=== PATIENT | female | born 1970 | race Two or more races ===

== ENCOUNTER 2025-03-23 21:38 | Emergency (ER) | payer MEDICAID, SELFPAY ==
[2025-03-23 22:40] VITALS: BP 159/95; PULSE 84; RESP 18; TEMP 36.7; O2SAT 95
--- NOTE | 2025-03-23 23:06 | XR_ITS ---
Examination: Wrist, right 3 views Technique: Wrist AP, oblique, lateral 3 views Date and time of exam: Patient fell the day with injured the wrist, wrist pain. FINDINGS: On the lateral view tiny chip fracture off the proximal carpal row Radius and ulna appear intact No dislocation IMPRESSION: 2 mm chip fracture dorsal wrist off the proximal carpal row, which may be off the navicular
[2025-03-24 01:21] VITALS: RESP 16
--- NOTE | 2025-03-24 04:54 | PD.EDHAND ---
Upper Extremity Injury RME/HPI General Chief Complaint: Fall Stated Complaint: FELL, RIGHT WRIST INJURY Time Seen by Provider: 03/23/25 23:05 Arrival date/time: 03/23/25 21:38 54F with history of HTN and thyroid cancer presents to ED with R wrist pain after trip and fall. Patient denies hitting head. Limitations: no limitations Related Data Home Medications ?Medication ?Instructions ?Recorded ?Confirmed levothyroxine 150 mcg tablet 175 mcg PO QAM 01/12/18 11/10/20 (Synthroid) propranolol 20 mg tablet 40 mg PO DAILY 01/12/18 11/10/20 Previous Rx's ?Medication ?Instructions ?Recorded azithromycin 250 mg tablet See Rx Instructions PO .COMPLEX #6 08/01/20 (Zithromax Z-Josue) tabs hydrocodone 5 mg-acetaminophen 325 1 tab PO Q8H PRN pain #30 tabs 08/01/20 mg tablet ([place]) azithromycin 250 mg tablet See Rx Instructions PO .COMPLEX #6 11/10/20 (Zithromax Z-Josue) tabs Allergies Allergy/AdvReac Type Severity Reaction Status Date / Time sulfamethoxazole Allergy Severe SOB, Verified 03/23/25 21:39 GINA SKIN trimethoprim Allergy Severe SOB, Verified 03/23/25 21:39 GINA SKIN Review of Systems Review of Systems Systems Reviewed: All systems reviewed, normal except as documented Constitutional Constitutional: Reports system reviewed and no additional complaints, except as documented, Denies fever(s) and Denies headache(s) ENT Ears, Nose, Mouth, and Throat: Denies disequilibrium and Denies headache(s) Cardiovascular Cardiovascular: Reports system reviewed and no additional complaints, except as documented, Denies chest pain and Denies dyspnea Respiratory Respiratory: Reports system reviewed and no additional complaints, except as documented, Denies cough and Denies dyspnea Gastrointestinal Gastrointestinal: Reports system reviewed and no additional complaints, except as documented, Denies abdominal pain, Denies nausea and Denies vomiting Musculoskeletal Musculoskeletal: Reports as per HPI and Reports arthralgias Neurologic Neurologic: Reports system reviewed and no additional complaints, except as documented, Denies confusion, Denies disequilibrium and Denies headache(s) Psychiatric Psychiatric: Denies confusion Past Medical History Past Medical History NEUROLOGIC: Negative Neurological Disorders or Seizures CARDIAC: Positive Cardiac Disorders, Edema and Hypertension; Negative Congestive Heart Failure RESPIRATORY: Negative Chronic Obstructive Pulmonary Disease (COPD), Pneumonia or Sleep Apnea GASTROINTESTINAL: Positive Gastrointestinal Disorders and Gastroesophageal Reflux Disease GENITOURINARY: Negative Genitourinary Disorders or Renal Disease REPRODUCTIVE: Positive Previous Pregnancies MUSCULOSKELETAL: Negative Musculoskeletal Disorders ENDOCRINE: Positive Endocrine Disorders, Hypothyroidism and Thyroid Cancer; Negative Diabetes Mellitus Type 1 or Diabetes Mellitus Type 2 HEMATOLOGIC: Negative Blood Disorders or Anemia OTHER HISTORY: Positive Cancer; Negative Hospitalization, Autoimmune Disease, Shingles, Falls, Blood Transfusions, Blood Transfusion Reaction, Anesthesia Reactions or Chemotherapy Family History FAMILY HISTORY: Negative Family Psychiatric Problems, Family Respiratory Disorders, Family Cardiac Disorders, Family Gastrointestinal Problems, Family Cancer, Family Surgery or Family Anesthesia Reaction Surgical History SURGICAL: Positive Endocrine Surgery, Thyroidectomy, Abdominal Surgery, Tubal Ligation and Section; Negative Cardiac Surgery or Joint Replacement Social History SMOKING STATUS: Never smoker SUBSTANCE USE: does not use ED Exam General Limitations: Present no limitations General appearance: Present alert and in no apparent distress Head Head exam: Present atraumatic Eye Eye exam: Present normal appearance, PERRL and EOMI ENT ENT exam: Present normal exam, normal oropharynx and mucous membranes moist Neck Neck exam: Present normal inspection, full ROM and trachea midline Chest Chest inspection: Present normal inspection and symmetric chest wall rise Respiratory Respiratory exam: Present normal lung sounds bilaterally Cardiovascular Cardiovascular exam: Present regular rate, normal rhythm and normal heart sounds Abdominal Exam Abdominal exam: Present soft and normal bowel sounds Expanded Upper Extremity Exam Forearm/Wrist exam: Present tenderness (R) and swelling Back Exam Back exam: Present normal inspection and full ROM Neurological Exam Neurological exam: Present alert, oriented X3 and CN II-XII intact Psychiatric Psychiatric exam: Present normal affect and normal mood Skin Skin exam: Present warm, dry, intact and normal color Course Quality Measures none Orders Category Date Time Status Splint / Immobilizer STAT Care 03/24/25 00:35 Completed XR wrist comp RT min 3V Stat Exams 03/23/25 23:06 Completed Vital Signs Vital signs: Vital Signs Temperature 98.1 F 03/23/25 22:40 Pulse Rate 84 03/23/25 22:40 Respiratory Rate 18 03/23/25 22:40 Blood Pressure 159/95 H 03/23/25 22:40 Pulse Oximetry (%) 95 03/23/25 22:40 Oxygen Delivery Method Room Air 03/23/25 22:40 O2 at 95% on RA and WNLs Extremity Injury MDM Narrative MDM Narrative:: 54F with history of HTN and thyroid cancer presents to ED with R wrist pain after trip and fall. Patient denies hitting head. Physical exam reveals R wrist tenderness and swelling. Limited ROM. Patient is afebrile, calm, and alert. XR reveals R wrist chip fx. Given splint, sling, and academic counselor. Patient data External records reviewed:: [facility] previous records Clinical information provided by:: patient Social determinants that could affect healthcare access:: none Patient has the following chronic illnesses:: HTN and thyroid cancer How is presenting disease/condition affected by chronic disease/condition?: uneffected by Evaluation data The following diagnostics were reviewed and interpreted by me:: radiology exam(s) Lab and/or radiology exams considered but not ordered:: ordered Interpretation Summary: above Medications / Prescriptions Medications or Prescriptions considered but not ordered:: not ordered Medication administrations:: n/a Consultations Consultation(s) initiated? (list below): No Diagnosis Upper Extremity Injury Differential Diagnosis: sprain and strain of wrist, fracture of wrist, finger sprain, dislocation of finger, Colles' fracture, fracture of hand and other Most likely diagnosis given after review of the tests above:: wrist fx Admission Indicated Admission indicated?: not indicated Admission Request Was there a request for admission?: No Disposition Plan Disposition Plan: Discharge Discharge Attestation Discharge Attestation: The patient and all family members were given an opportunity to ask questions and understood the discharge instructions. Discharge instructions specifically effects, indications for sooner follow up or return to the emergency department, and the expected course of current diagnosis. Patient condition: Stable Discharge Plan Plan Patient Disposition: HOME (Self Care) Discharge Disposition comment: Stable Prescriptions/Referrals Prescriptions/Med Rec: No Action azithromycin [Zithromax Z-Josue] 250 mg tablet See Rx Instructions .ROUTE .COMPLEX Qty: 6 0RF Rx Instructions: take 500 mg today (day 1), then 250 mg for 4 days (days 2-5) levothyroxine [Synthroid] 150 mcg Tablet 175 mcg PO QAM propranolol 20 mg Tablet 40 mg PO DAILY hydrocodone-acetaminophen [[place]] 5-325 mg tablet 1 tab PO Q8H MDD 6 PRN (Reason: pain) Qty: 30 0RF azithromycin [Zithromax Z-Josue] 250 mg tablet See Rx Instructions .ROUTE .COMPLEX Qty: 6 0RF Rx Instructions: take 500 mg today (day 1), then 250 mg for 4 days (days 2-5) Referrals: Epi Hernandez MD [Primary Care Provider] - In 1 week Problem List Clinical Impression: Fracture of wrist Patient/Caregiver Discharge Instructions Education Materials: ED Fracture, Wrist, General Additional Instructions: Please follow-up with PCP within 24-48 hours and return immediately if symptoms worsen. See PCP for referral to ortho. Make sure to bring disk. Print Language: Swedish Stand Alone Forms: Work/School Release, Patient Portal Info Letter PA/SOFTWARE INTEGRATION DEVELOPER Supervising Physician PA/SOFTWARE INTEGRATION DEVELOPER Supervising Physician: Dr. Johnson
== END 2025-03-24 01:22 | disposition home or self-care (01) ==
PROVIDERS: Emergency Provider Emergency Medicine; PCP Family Medicine
DX: S62.101A Fracture of unspecified carpal bone, right wrist, initial encounter for closed fracture (principal); W01.0XXA Fall on same level from slipping, tripping and stumbling without subsequent striking against object, initial encounter
CPT/HCPCS: 29125; 73110; 99283

== ENCOUNTER 2025-03-26 19:17 | Emergency (ER) | payer MEDICAID, SELFPAY ==
[2025-03-26 19:19] VITALS: BMI 47.6
--- NOTE | 2025-03-26 19:22 | PD.EDVAGBL ---
ED OB Contraction Preg RMI/HPI General Chief complaint: Vaginal Bleeding Stated complaint: vag bleeding abd pain Time Seen by Provider: 03/26/25 19:20 Arrival date/time: 03/26/25 19:17 RME / HPI RME / HPI Narrative: This section includes all my notes and documentations, including HPI, PE, and ED course. Flex Mccarthy MD HPI: 54yo female presents to the ED for a chief complaint of intermittent vaginal bleeding for the last few months that worsened today. Patient does have mild pelvic cramping. No fever, chills, nausea, vomiting or any other associated symptoms. No other complaints reported. ROS: All negative except as documented in HPI. Physical Exam: General: Alert and oriented. No acute distress when remaining still. Eyes: Conjunctivae and lids clear. ENT: No nasal congestion. Neck: Supple. Heart: RRR. Lungs: No respiratory distress. Good air movement. No rhonchi, wheezing, rales. Abdomen: Soft and nontender. Normal bowel sounds. No distension. No rebound or guarding. Back: No CVA tenderness. Skin: Warm and dry. Neuro: Alert and oriented X 3. I reviewed all diagnostic test results. My interpretation of the chest x-ray is NAD. My review of the US transvaginal report is abnormal thickened endometrial stripe. My review of the CT abdomen pelvis report is abnormal thickened endometrial stripe. Blood tests and urine tests unremarkable. At this point, diagnoses include postmenopausal bleeding with thickened endometrial stripe. Treatment here included NS, Toradol, and Zofran. She felt better. Recommend outpatient [employer] workup to rule out cancer. Based on my best medical judgment, made decision no further evaluation or treatment indicated at this time. Patient understands and agrees to the discharge instructions customized and printed, see below. Discharge Instructions from Dr. Mccarthy printed for you: 1. After extensive evaluation, exact cause of your postmenopausal bleeding was not determined. But your red blood cell count was normal, meaning transfusion or other emergent intervention to stop the bleeding was not indicated. 2. But your uterus lining is abnormally thick. So we need to rule out the worst cause, which is cancer. This does not mean you have cancer but we need to rule it out. 3. See a primary care doctor on 03/27/2025 for recheck and further care. Ask to review all test results and official radiology reports, to make sure you receive all necessary follow-ups and monitoring. Ask for a referral to see lining parts sewer to help you find the cause and treatment of your condition. Call your insurance company for help. 4. Seek immediate medical care with intolerable pain, severely heavy vaginal bleeding (soaking more than 3 pads per hour), or with any concerns. Flex Mccarthy MD Related Data Home Medications ?Medication ?Instructions ?Recorded ?Confirmed levothyroxine 150 mcg tablet 175 mcg PO QAM 01/12/18 11/10/20 (Synthroid) propranolol 20 mg tablet 40 mg PO DAILY 01/12/18 11/10/20 Previous Rx's ?Medication ?Instructions ?Recorded azithromycin 250 mg tablet See Rx Instructions PO .COMPLEX #6 08/01/20 (Zithromax Z-Josue) tabs hydrocodone 5 mg-acetaminophen 325 1 tab PO Q8H PRN pain #30 tabs 08/01/20 mg tablet ([place]) azithromycin 250 mg tablet See Rx Instructions PO .COMPLEX #6 11/10/20 (Zithromax Z-Josue) tabs Allergies Allergy/AdvReac Type Severity Reaction Status Date / Time sulfamethoxazole Allergy Severe SOB, Verified 03/23/25 21:39 [place]INA SKIN trimethoprim Allergy Severe SOB, Verified 03/23/25 21:39 [place] SK[place] Review of Systems Review of Systems Systems Reviewed: All systems reviewed, normal except as documented Past Medical History Past Medical History NEUROLOGIC: Negative Neurological Disorders or Seizures CARDIAC: Positive Cardiac Disorders, Edema and Hypertension; Negative Congestive Heart Failure RESPIRATORY: Negative Chronic Obstructive Pulmonary Disease (COPD), Pneumonia or Sleep Apnea GASTROINTESTINAL: Positive Gastrointestinal Disorders and Gastroesophageal Reflux Disease GENITOURINARY: Negative Genitourinary Disorders or Renal Disease REPRODUCTIVE: Positive Previous Pregnancies MUSCULOSKELETAL: Negative Musculoskeletal Disorders ENDOCRINE: Positive Endocrine Disorders, Hypothyroidism and Thyroid Cancer; Negative Diabetes Mellitus Type 1 or Diabetes Mellitus Type 2 HEMATOLOGIC: Negative Blood Disorders or Anemia OTHER HISTORY: Positive Cancer; Negative Hospitalization, Autoimmune Disease, Shingles, Falls, Blood Transfusions, Blood Transfusion Reaction, Anesthesia Reactions or Chemotherapy Family History FAMILY HISTORY: Negative Family Psychiatric Problems, Family Respiratory Disorders, Family Cardiac Disorders, Family Gastrointestinal Problems, Family Cancer, Family Surgery or Family Anesthesia Reaction Surgical History SURGICAL: Positive Endocrine Surgery, Thyroidectomy, Abdominal Surgery, Tubal Ligation and Section; Negative Cardiac Surgery or Joint Replacement Social History SMOKING STATUS: Never smoker SUBSTANCE USE: does not use ED Exam Narrative Physical exam: As noted in HPI. Course Quality Measures none Orders Category Date Time Status CT Screening NOW Care 03/26/25 19:31 Active Saline [Insert IV] NOW Care 03/26/25 19:[address] abdomen pelvis w con Stat Exams 03/26/25 19:31 Completed US transvaginal Stat Exams 03/26/25 19:32 Completed XR chest 1V portable Stat Exams 03/26/25 19:32 Completed Bilirubin,Direct Stat Lab 03/26/25 20:55 Completed CBC Stat Lab 03/26/25 20:55 Completed CMP [Comprehensive Metabolic Panel] Stat Lab 03/26/25 20:55 Completed CRP [C-Reactive Protein] Stat Lab 03/26/25 20:55 Completed ESR [Sed Rate (ESR)] Stat Lab 03/26/25 20:55 Completed Free T4 (Free Thyroxine) Stat Lab 03/26/25 20:55 Completed HCG Qualitative,Urine Stat Lab 03/26/25 21:37 Completed Magnesium Stat Lab 03/26/25 20:55 Completed PT [Prothrombin Time with INR] Stat Lab 03/26/25 20:55 Completed PTT [Partial Thromboplastin Time] Stat Lab 03/26/25 20:55 Completed Procalcitonin Stat Lab 03/26/25 20:55 Completed TSH [Thyroid Stimulating Hormone] Stat Lab 03/26/25 20:55 Completed UA, C/S IF [Urinalysis, C/S if Indicated] Stat Lab 03/26/25 21:35 Completed Ketorolac Inj [Toradol Inj] Med 03/26/25 19:30 Discontinued 30 mg IVP X1 ONE Ondansetron Inj [Zofran Inj] Med 03/26/25 19:30 Discontinued 4 mg IVP X1 ONE Sodium Chloride 0.9% 1000 ml [Ns] 1,000 ml Med 03/26/25 19:30 Discontinued IV 999 mls/hr Vital Signs Vital signs: Vital Signs Temperature 99.6 F 03/26/25 19:40 Pulse Rate 78 03/26/25 19:40 Respiratory Rate 19 03/26/25 19:40 Blood Pressure 160/89 H 03/26/25 19:40 Pulse Oximetry (%) 96 03/26/25 19:40 Oxygen Delivery Method Room Air 03/26/25 19:40 Vaginal Bleeding MDM Narrative MDM Narrative: 54yo female presents to the ED for a chief complaint of intermittent vaginal bleeding for the last few months that worsened today. Patient does have mild pelvic cramping. No fever, chills, nausea, vomiting or any other associated symptoms. Patient had a procedure done a few years ago due to having similar symptoms, but does not remember what was done. No other complaints reported. Patient data External records reviewed:: [facility] previous records (Per chart review, patient has no relevant previous ED visits. Patient had a hysteroscopy D&C done on 08/01/20 due to having an endometrial polyp.) Clinical information provided by:: patient Social determinants that could affect healthcare access:: none Patient has the following chronic illnesses:: HTN How is presenting disease/condition affected by chronic disease/condition?: uneffected by Evaluation data The following diagnostics were reviewed and interpreted by me:: lab results and radiology exam(s) Lab and/or radiology exams considered but not ordered:: none Interpretation Summary: I reviewed all diagnostic test results. My interpretation of the chest x-ray is NAD. My review of the US transvaginal report is abnormal thickened endometrial stripe. My review of the CT abdomen pelvis report is abnormal thickened endometrial stripe. Blood tests and urine tests unremarkable. Medications / Prescriptions Medications or Prescriptions considered but not ordered:: none Medication administrations:: Medication Administration History Discontinued Medications Sodium Chloride (Ns) 1,000 mls @ 999 mls/hr IV .Q1H1M ONE Stop: 03/26/25 20:30 Last Infusion: 03/26/25 22:16 Dose: Infused Documented By: Admin: 03/26/25 20:59 Dose: 999 mls/hr Documented By: BD Ketorolac Tromethamine (Ketorolac Inj 30 Mg/Ml Vial) 30 mg IVP X1 ONE Stop: 03/26/25 19:31 Last Admin: 03/26/25 20:58 Dose: Not Given Documented By: BD Non-Admin Reason: Patient Refused Ondansetron HCl (Ondansetron Inj 2 Mg/Ml Inj 2 Ml) 4 mg IVP X1 ONE; Protocol Stop: 03/26/25 19:31 Last Admin: 03/26/25 20:58 Dose: Not Given Documented By: BD Non-Admin Reason: Patient Refused NS, Toradol, Zofran Consultations Consultation(s) initiated? (list below): No Diagnosis Vaginal Bleeding Differential Diagnosis: other (Cancer, fibroids, fibrodysplasia, dysfunctional uterine bleeding) Most likely diagnosis given after review of the tests above:: Postmenopausal bleeding with thickened endometrial stripe. Admission Indicated Admission indicated?: not indicated Explain why admission is indicated or not indicated:: With no condition needing emergent intervention, there was no indication for admission. Admission Request Was there a request for admission?: No Disposition Plan Disposition Plan: Discharge Discharge Attestation Discharge Attestation: The patient and all family members were given an opportunity to ask questions and understood the discharge instructions. Discharge instructions specifically effects, indications for sooner follow up or return to the emergency department, and the expected course of current diagnosis. Patient condition: Stable Discharge Plan Plan Patient Disposition: HOME (Self Care) Prescriptions/Referrals Prescriptions/Med Rec: No Action azithromycin [Zithromax Z-Josue] 250 mg tablet See Rx Instructions .ROUTE .COMPLEX Qty: 6 0RF Rx Instructions: take 500 mg today (day 1), then 250 mg for 4 days (days 2-5) levothyroxine [Synthroid] 150 mcg Tablet 175 mcg PO QAM propranolol 20 mg Tablet 40 mg PO DAILY hydrocodone-acetaminophen [[place]] 5-325 mg tablet 1 tab PO Q8H MDD 6 PRN (Reason: pain) Qty: 30 0RF azithromycin [Zithromax Z-Josue] 250 mg tablet See Rx Instructions .ROUTE .COMPLEX Qty: 6 0RF Rx Instructions: take 500 mg today (day 1), then 250 mg for 4 days (days 2-5) Referrals: No Primary/Family,Physician [Primary Care Provider] - In 1 week Problem List Clinical Impression: Postmenopausal bleeding Patient/Caregiver Discharge Instructions Discharge Activity: activity as tolerated Education Materials: Endometrial Biopsy, ED Heavy Menstrual Bleeding Additional Instructions: Discharge Instructions from Dr. Mccarthy printed for you: 1. After extensive evaluation, exact cause of your postmenopausal bleeding was not determined. But your red blood cell count was normal, meaning transfusion or other emergent intervention to stop the bleeding was not indicated. 2. But your uterus lining is abnormally thick. So we need to rule out the worst cause, which is cancer. This does not mean you have cancer but we need to rule it out. 3. See a primary care doctor on 03/27/2025 for recheck and further care. Ask to review all test results and official radiology reports, to make sure you receive all necessary follow-ups and monitoring. Ask for a referral to see lining parts sewer to help you find the cause and treatment of your condition. Call your insurance company for help. 4. Seek immediate medical care with intolerable pain, severely heavy vaginal bleeding (soaking more than 3 pads per hour), or with any concerns. Print Language: Mohawk Stand Alone Forms: Carmen Award Info., Patient Portal Info Letter
--- NOTE | 2025-03-26 19:31 | XR_ITS ---
Examination: CT abdomen with intravenous contrast CT pelvis with intravenous contrast 2-D coronal reconstructions 2-D sagittal reconstructions Date and time of exam:March 26, 2000 2510 0 4:00 PM INDICATIONS: Lower abdominal pain and vaginal bleeding one month. CTDI: vol (mGy) 16.7 DLP: (mGycm) 878 Technique: Multiple axial sections of the abdomen and pelvis have been obtained. 64 slice high-resolution scanner used. 3 mm axial sections have been obtained, post intravenous injection of 60 cc [id number] 2-D sagittal, coronal reconstructions obtained. Low dose protocols were performed. One or more of the following dose reduction techniques were used; automated exposure control, adjustment of the mA and/or KV according to patient size, use of iterative reconstruction technique. Findings: No gallstones No pancreatic or adrenal mass 2 mm nonobstructing left renal calculus Aorta normal size No bowel obstruction Tiny fat-containing umbilical hernia Anteverted uterus with thickened endometrial stripe No pelvic lymphadenopathy Urinary bladder intact IMPRESSION: 2 mm nonobstructing left renal calculus Abnormal thickened endometrial stripe Recommend MRI pelvis follow-up pre and postcontrast to assess for malignant neoplasm of the endometrium
--- NOTE | 2025-03-26 19:32 | XR_ITS ---
Examination: AP chest single TECHNIQUE: AP portable semiupright chest single view Date and time: 2024, 1946 hours Comparison November 20, 2020 INDICATIONS: Shortness of breath today. FINDINGS: Suspicious for early right base pneumonia Mild vascular congestion Prominent osteopenia IMPRESSION: Suspicious for early right base pneumonia
--- NOTE | 2025-03-26 19:32 | XR_ITS ---
Examination: Transvaginal ultrasound of the pelvis, complete Technique: Transvaginal sonographic images pelvis performed using costello scale imaging Exam date and time: March 26, 2025 1937 hours INDICATIONS: Heavy vaginal bleeding beginning 3 months ago FINDINGS: Uterus 11.7 cm with blood in the cervix 3.6 x 1.2 x 3.4 cm Endometrial stripe 3.4 cm thickened Right ovary 2.2 cm arterial flow Doppler view obscured by bowel gas IMPRESSION: Blood in the cervix, abnormal thickened endometrial stripe, differential would include malignant neoplasm of the endometrium Recommend elective MRI pelvis follow-up pre and postcontrast.
[2025-03-26 19:40] VITALS: BP 160/89; PULSE 78; RESP 19; TEMP 37.6; O2SAT 96
[2025-03-26] MEDS: SODIUM CHLORIDE 0.9% 1000 ML 1,000 ML 999 ML IV (20:59)
[2025-03-26 21:19] LABS: Basophils # (Auto) 0.1 Thou/mm3 (0.0-0.2); Basophils % (Auto) 1 % (0-2.5); Eosinophils # (Auto) 0.8 Thou/mm3 (0.0-0.5); Eosinophils % (Auto) 10 % (0-10); Immature Granulocytes % (Auto) 1 % (0-0); Immature Granulocytes Auto 0.04 Thou/mm3 (0.00-0.00); Lymphocytes % (Auto) 26 % (10-50); Mean Corpuscular HGB Conc 35.9 g/dl (31.0-37.0); Mean Corpuscular Hemoglobin 32.5 pg (25.0-35.0); Mean Corpuscular Volume 91 fL (80-100); Monocytes # (Auto) 0.5 Thou/mm3 (0.0-0.8); Monocytes % (Auto) 6 % (0-12); Neutrophils # (Auto) 4.3 Thou/mm3 (1.8-7.7); Neutrophils % (Auto) 56 % (37-80); Nucleated Red Blood Cell % 0 /100 WBC (0); Platelet Count 252 Thou/mm3 (140-440); RDW Standard Deviation 40.5 fL (36.4-46.3); Red Blood Count 4.31 Miln/mm3 (4.00-5.20); White Blood Count 7.6 Thou/mm3 (3.6-11.0)
[2025-03-26 21:25] LABS: Sed Rate (ESR) 27 mm/hr (0-30)
[2025-03-26 21:32] LABS: Partial Thromboplastin Time 26.3 Seconds (22.0-36.0); Prothrombin Time 10.7 Seconds (9.0-12.2)
--- NOTE | 2025-03-26 21:39 | PC.NURSE ---
in and out not done pt was able to urinate on own
[2025-03-26 21:40] LABS: Alanine Aminotransferase 48 U/L (10-49); Albumin, Serum 4.4 gm/dL (3.5-5.0); Albumin/Globulin Ratio 1.6 (1.2-2.2); Alkaline Phosphatase 85 U/L (46-116); Anion Gap 9 (7-16); Aspartate Amino Transferase 32 U/L (0-34); BUN/Creatinine Ratio 13 Ratio (12-20); Bilirubin,Direct 0.1 mg/dL (0.0-0.3); Bilirubin,Total 0.5 mg/dL (0.3-1.2); Blood Urea Nitrogen 10 mg/dL (9-23); C-Reactive Protein < 0.5 mg/dL (0.0-0.9); Calcium 9.2 mg/dL (8.3-10.6); Calcium (Corrected) 9.2 mg/dL (8.5-10.1); Carbon Dioxide 25.6 mMol/L (20.0-31.0); Chloride 106 mMol/L (98-107); Creatinine (Component) 0.8 mg/dL (0.6-1.3); Estimated Creatinine Clearance 86.2 mL/min (>60); Free T4 (Free Thyroxine) 1.21 ng/dL (0.89-1.76); Globulin 2.8 gm/dL (2.3-3.5); Glucose 104 mg/dL (74-106); Osmolality,Calculated 280 (275-295); Potassium 3.8 mMol/L (3.4-5.1); Procalcitonin < 0.04 ng/ml (0.0-0.49); Sodium 141 mMol/L (136-145); Thyroid Stimulating Hormone 9.21 uIU/mL (0.55-4.78); Total Protein 7.2 gm/dL (5.7-8.2); eGFR > 60 See Note
[2025-03-26 21:43] LABS: Collection Type, Urine Clean Catch
[2025-03-26 21:52] LABS: HCG Qualitative,Urine Negative
[2025-03-26 21:52] LABS: Bilirubin,Urine Negative (Negative); Blood,Urine 3+ (Negative); Clarity,Urine Clear (Clear/Hazy); Color,Urine Colorless (Lt Yel-Yel); Culture Indicated,Urine Not Indicated; Glucose, Urine Negative (Negative); Ketones,Urine Negative (Negative); Leukocyte Esterase,Urine Negative (Negative); Nitrite,Urine Negative (Negative); PH,Urine 6.5 (5.0-7.0); Protein,Urine Negative (Neg - Trace); RBC,Urine 133 /hpf (0-3); Specific Gravity,Urine 1.009 (1.001-1.035); Squamous Epithelial Cell,Urine 2 /hpf (0-5); Urobilinogen,Urine Negative mg/dL (0.0-1.0); WBC,Urine 7 /hpf (0-5)
[2025-03-26 22:41] VITALS: BP 155/90; PULSE 77; RESP 16; TEMP 36.6; O2SAT 97
[2025-03-26 23:43] VITALS: PULSE 85; RESP 12; TEMP 37.3; O2SAT 99
== END 2025-03-26 23:44 | disposition home or self-care (01) ==
PROVIDERS: Emergency Provider Emergency Medicine
DX: N95.0 Postmenopausal bleeding (principal); R93.89 Abnormal findings on diagnostic imaging of other specified body structures; R06.02 Shortness of breath; N20.0 Calculus of kidney
CPT/HCPCS: 36415; 71045; 74177; 76830; 80053; 81001; 81025; 82248; 83735; 84145; 84439; 84443; 85025; 85610; 85652; 85730; 86140; 96360; 99285; A4649; J7030; Q9967

== ENCOUNTER 2025-04-13 11:39 | Emergency (ER) | payer MEDICAID, SELFPAY ==
[2025-04-13 12:05] VITALS: BP 160/82; PULSE 80; RESP 18; TEMP 36.9; O2SAT 98; BMI 47.8
[2025-04-13 12:16] LABS: Collection Type, Urine Clean Catch
[2025-04-13 12:21] LABS: Bilirubin,Urine Negative (Negative); Blood,Urine Negative (Negative); Clarity,Urine Clear (Clear/Hazy); Color,Urine Lt-Yellow (Lt Yel-Yel); Culture Indicated,Urine Not Indicated; Glucose, Urine Negative (Negative); Ketones,Urine Negative (Negative); Leukocyte Esterase,Urine Positive (Negative); Nitrite,Urine Negative (Negative); PH,Urine 6.0 (5.0-7.0); Protein,Urine Negative (Neg - Trace); RBC,Urine 5 /hpf (0-3); Specific Gravity,Urine 1.011 (1.001-1.035); Squamous Epithelial Cell,Urine 2 /hpf (0-5); Urobilinogen,Urine Negative mg/dL (0.0-1.0); WBC,Urine 6 /hpf (0-5)
--- NOTE | 2025-04-13 12:49 | EDNOTE_ITS ---
ED Female Urogenital RME/HPI General Chief complaint: Urogenital-Female Stated complaint: Parasites in her urine, UTI Time Seen by Provider: 04/13/25 12:02 Arrival date/time: 04/13/25 11:39 54-year-old female presents to the emergency department today for complaints of dysuria patient reports that a UTI last month reports similar symptoms at this time patient also reports vaginal itching. Patient denies any discharge Limitations: no limitations Related Data Home Medications ?Medication ?Instructions ?Recorded ?Confirmed levothyroxine 150 mcg tablet 175 mcg PO QAM 01/12/18 0 11/10/20 (Synthroid) propranolol 20 mg tablet 40 mg PO DAILY 01/12/1803/25 Previous Rx's ?Medication ?Instructions ?Recorded azithromycin 250 mg tablet See Rx Instructions PO .COM PLEX #6 08/01/20 (Zithromax Z-Josue) tabs hydrocodone 5 mg-acetaminophen 325 1 tab PO Q8H PRN pa in #30 tabs 08/01/20 mg tablet ([place]) azithromycin 250 mg tablet See Rx Instructions PO .COM PLEX #6 11/10/20 (Zithromax Z-Josue) tabs ciprofloxacin HCl 500 mg tablet 500 mg PO BID 7 days # 14 tabs 04/13/25 fluconazole 150 mg tablet 150 mg PO Q3D 2 doses #2 tab s 04/13/25 Allergies Allergy/AdvReac Type Severity Reaction Status Date / Time sulfamethoxazole Allergy Severe SOB, Verified 04/13/25 11:44 GINA SKIN trimethoprim Allergy Severe SOB, Verified 04/13/25 11:44 GINA SKIN Review of Systems Review of Systems Systems Reviewed: All systems reviewed, normal except as documented Constitutional Constitutional: Reports system reviewed and no additional complaints, except as documented, Denies fever(s) and Denies headache(s) Eyes Eyes: Reports system reviewed and no additional complaints, except as documented and Denies blurry vision ENT Ears, Nose, Mouth, and Throat: Reports system reviewed and no additional complaints, except as documented, Denies headache(s), Denies nasal congestion and Denies nasal discharge Cardiovascular Cardiovascular: Reports system reviewed and no additional complaints, except as documented, Denies chest pain and Denies dyspnea Respiratory Respiratory: Reports system reviewed and no additional complaints, except as documented, Denies chest congestion, Denies cough and Denies dyspnea Gastrointestinal Gastrointestinal: Reports system reviewed and no additional complaints, except as documented and Denies abdominal pain Genitourinary Genitourinary: Reports system reviewed and no additional complaints, except as documented, Denies abnormal vaginal bleeding, Reports dysuria, Denies pelvic pain and Reports vaginal pruritus Integumentary/Breasts Skin/Breast: Reports system reviewed and no additional complaints, except as documented and Denies rash Neurologic Neurologic: Reports system reviewed and no additional complaints, except as documented, Reports as per HPI and Denies headache(s) Past Medical History Past Medical History NEUROLOGIC: Negative Neurological Disorders or Seizures CARDIAC: Positive Edema and Hypertension; Negative Cardiac Disorders or Congestive Heart Failure RESPIRATORY: Negative Chronic Obstructive Pulmonary Disease (COPD), Asthma, Pneumonia or Sleep Apnea GASTROINTESTINAL: Positive Gastrointestinal Disorders and Gastroesophageal Reflux Disease GENITOURINARY: Negative Genitourinary Disorders or Renal Disease (see labs) REPRODUCTIVE: Positive Previous Pregnancies MUSCULOSKELETAL: Negative Musculoskeletal Disorders ENDOCRINE: Positive Endocrine Disorders, Hypothyroidism and Thyroid Cancer; Negative Diabetes Mellitus Type 1 or Diabetes Mellitus Type 2 HEMATOLOGIC: Negative Blood Disorders, Anemia or Sickle Cell Disease OTHER HISTORY: Positive Cancer (thyroid); Negative Hospitalization, Autoimmune Disease, Shingles, Falls, Blood Transfusions, Blood Transfusion Reaction, Anesthesia Reactions or Chemotherapy Family History FAMILY HISTORY: Negative Family Psychiatric Problems, Family Respiratory Disorders, Family Cardiac Disorders, Family Gastrointestinal Problems, Family Cancer, Family Surgery or Family Anesthesia Reaction Surgical History SURGICAL: Positive Endocrine Surgery, Thyroidectomy, Abdominal Surgery, Tubal Ligation and Section; Negative Cardiac Surgery or Joint Replacement Social History SMOKING STATUS: Never smoker SUBSTANCE USE: does not use ED Exam General Limitations: Present no limitations General appearance: Present alert and in no apparent distress Head Head exam: Present atraumatic Eye Eye exam: Present normal appearance, PERRL and EOMI ENT ENT exam: Present normal exam, normal oropharynx and mucous membranes moist Neck Neck exam: Present normal inspection, full ROM and trachea midline Chest Chest inspection: Present normal inspection and symmetric chest wall rise Respiratory Respiratory exam: Present normal lung sounds bilaterally Cardiovascular Cardiovascular exam: Present regular rate, normal rhythm and normal heart sounds Abdominal Exam Abdominal exam: Present soft and normal bowel sounds; Absent distention or tenderness External exam: Absent erythema, tenderness, swelling, lesions, lacerations or ecchymosis Extremities Exam Extremities exam: Present normal inspection and full ROM Back Exam Back exam: Present normal inspection and full ROM Neurological Exam Neurological exam: Present alert, oriented X3 and CN II-XII intact Psychiatric Psychiatric exam: Present normal affect and normal mood Skin Skin exam: Present warm, dry, intact and normal color Course Quality Measures none Orders Category Date Time Status UA, C/S IF [Urinalysis, C/S if Indicated] Stat Lab 04/13/25 12:12 Completed Vital Signs Vital signs: Vital Signs Temperature 98.5 F 04/13/25 12:05 Pulse Rate 80 04/13/25 12:05 Respiratory Rate 18 04/13/25 12:05 Blood Pressure 160/82 H 04/13/25 12:05 Pulse Oximetry (%) 98 04/13/25 12:05 Oxygen Delivery Method Room Air 04/13/25 12:05 O2 saturation 98% on room air within normal limits Urogenital - Female MDM Narrative MDM Narrative:: 54-year-old female presents to the emergency department today for complaints of dysuria patient reports that a UTI last month reports similar symptoms at this time patient also reports vaginal itching. Patient denies any discharge On exam patient well-appearing patient does not appear ill or toxic no acute distress Urinalysis obtained consistent with UTI With a female transformation lead I examined the patient patient has no lesions or sores noted Patient be treated with a course of antibiotics and Diflucan Patient discharged home in no distress to follow-up with primary care doctor in the next 24 to 48 hours and for any worsening symptoms to return to the ER immediately Patient data External records reviewed:: [facility] previous records Clinical information provided by:: patient Social determinants that could affect healthcare access:: none Patient has the following chronic illnesses:: See history How is presenting disease/condition affected by chronic disease/condition?: uneffected by Evaluation data The following diagnostics were reviewed and interpreted by me:: lab results Lab and/or radiology exams considered but not ordered:: Lab obtained Interpretation Summary: Reviewed by me Medications / Prescriptions Medications or Prescriptions considered but not ordered:: Given Medication administrations:: Given Consultations Consultation(s) initiated? (list below): No Diagnosis Urogenital Female Differential Diagnosis: urinary tract infection, bacterial vaginosis and cystitis Most likely diagnosis given after review of the tests above:: UTI Admission Indicated Admission indicated?: not indicated Admission Request Was there a request for admission?: No Disposition Plan Disposition Plan: Discharge Discharge Attestation Discharge Attestation: The patient and all family members were given an opportunity to ask questions and understood the discharge instructions. Discharge instructions specifically effects, indications for sooner follow up or return to the emergency department, and the expected course of current diagnosis. Patient condition: Stable Discharge Plan Plan Patient Disposition: HOME (Self Care) Discharge Disposition comment: Stable Prescriptions/Referrals Prescriptions/Med Rec: New ciprofloxacin HCl 500 mg tablet 500 mg PO BID 7 Days Qty: 14 0RF fluconazole 150 mg tablet 150 mg PO Q3D Qty: 2 0RF Rx Instructions: may repeat second dose 72 hrs after first dose if symptoms persist No Action azithromycin [Zithromax Z-Josue] 250 mg tablet See Rx Instructions .ROUTE .COMPLEX Qty: 6 0RF Rx Instructions: take 500 mg today (day 1), then 250 mg for 4 days (days 2-5) levothyroxine [Synthroid] 150 mcg Tablet 175 mcg PO QAM propranolol 20 mg Tablet 40 mg PO DAILY hydrocodone-acetaminophen [[place]] 5-325 mg tablet 1 tab PO Q8H MDD 6 PRN (Reason: pain) Qty: 30 0RF azithromycin [Zithromax Z-Josue] 250 mg tablet See Rx Instructions .ROUTE .COMPLEX Qty: 6 0RF Rx Instructions: take 500 mg today (day 1), then 250 mg for 4 days (days 2-5) Referrals: Og Garcias MD [Primary Care Provider] - In 1 week Problem List Clinical Impression: UTI (urinary tract infection) Patient/Caregiver Discharge Instructions Education Materials: Understanding Urinary Tract ... Additional Instructions: Please follow up with your primary care doctor in the next 24-48hrs for any worsening symptoms return here immediately Print Language: Citizen Of [place] Stand Alone Forms: Carmen Award Info., Patient Portal Info Letter PA/DEE Supervising Physician GENE/DEE Supervising Physician: Dr mirza
== END 2025-04-13 12:57 | disposition home or self-care (01) ==
PROVIDERS: Nurse Practitioner Primary Care; Emergency Provider Emergency Medicine; PCP Family Medicine
DX: N39.0 Urinary tract infection, site not specified (principal)
CPT/HCPCS: 81001; 99283

== ENCOUNTER 2025-05-09 07:40 | Emergency (ER) | payer MEDICAID, SELFPAY ==
[2025-05-09 07:41] VITALS: BMI 47.5
[2025-05-09 07:57] VITALS: BP 188/97; PULSE 69; RESP 18; TEMP 36.6; O2SAT 98
--- NOTE | 2025-05-09 08:12 | EDNOTE_ITS ---
<Statement entered by Rosita Cochran MD - 05/09/25 12:11> As co-signing physician, I was present and available for consult prn. I concur with the plan and care as documented by the midlevel provider. Upper Extremity Injury RME/HPI General Chief Complaint: Hand/Wrist Problems Stated Complaint: L) 4TH FINGER BEND BACK Time Seen by Provider: 05/09/25 08:11 Source: patient Arrival date/time: 05/09/25 07:40 Mode of arrival: ambulatory Limitations: no limitations RME / HPI RME / HPI narrative: Left hand pain after catching her left hand specifically the left ring finger in a door that she open and bounced back hitting the left hand between the door and the door frame. Date of injury was yesterday complaint: injury to: left, hand and finger (Ring finger) Onset (ago): day(s) (2 days) Other Extremity Injury: Left: fingers (Ring finger) Other injuries: none Place: outdoors Severity: moderate Severity scale (1-10): 5 Relieving factors: medication (Ibuprofen 200 mg) Exacerbating factors: none Context: direct blow Related Data Home Medications ?Medication ?Instructions ?Recorded ?Confirmed levothyroxine 150 mcg tablet 175 mcg PO QAM 01/12/18 0 11/10/20 (Synthroid) propranolol 20 mg tablet 40 mg PO DAILY 01/12/1803/25 Previous Rx's ?Medication ?Instructions ?Recorded azithromycin 250 mg tablet See Rx Instructions PO .COM PLEX #6 08/01/20 (Zithromax Z-Josue) tabs hydrocodone 5 mg-acetaminophen 325 1 tab PO Q8H PRN pa in #30 tabs 08/01/20 mg tablet ([place]) azithromycin 250 mg tablet See Rx Instructions PO .COM PLEX #6 11/10/20 (Zithromax Z-Josue) tabs fluconazole 150 mg tablet 150 mg PO Q3D 2 doses #2 tab s 04/13/25 Allergies Allergy/AdvReac Type Severity Reaction Status Date / Time sulfamethoxazole Allergy Severe SOB, Verified 05/09/25 07:45 GINA SKIN trimethoprim Allergy Severe SOB, Verified 05/09/25 07:45 GINA SKIN Review of Systems Constitutional Constitutional: Reports system reviewed and no additional complaints, except as documented Eyes Eyes: Reports system reviewed and no additional complaints, except as documented, Denies dry eyes, Denies exophthalmos and Reports floaters Cardiovascular Cardiovascular: Denies chest pain with activity and Denies claudication ED Exam Narrative Physical exam: The left hand is tender to palpation at the area of MCP numbers 3 and 4. There is edema present. Patient is barely able to make a fist. There is no apparent bony deformity. No ecchymoses and neurovascular is intact. General Limitations: Present no limitations General appearance: Present alert and in no apparent distress Head Head exam: Present atraumatic Eye Eye exam: Present normal appearance and EOMI ENT ENT exam: Present normal exam, normal oropharynx and mucous membranes moist Neck Neck exam: Present normal inspection, full ROM and trachea midline Extremities Exam Extremities exam: Present tenderness (There is tenderness to palpation of the left hand at the areas of MCP #3 and 4. Neurovascular is intact. No apparent bony deformity) Back Exam Back exam: Present normal inspection and full ROM Neurological Exam Neurological exam: Present alert and oriented X3 Psychiatric Psychiatric exam: Present normal affect and normal mood Skin Skin exam: Present warm, dry, intact and normal color Course Course Course Narrative: Patient will have an x-ray of her left hand. Patient had already consumed 200 mg of ibuprofen which she says helped relieve the pain. Quality Measures none Orders Category Date Time Status XR hand LT 2V Stat Exams 05/09/25 08:16 Completed XR wrist RT 2V Stat Exams 05/09/25 10:13 Completed Left hand x-ray Vital Signs Vital signs: Vital Signs Temperature 97.8 F 05/09/25 07:57 Pulse Rate 69 05/09/25 07:57 Respiratory Rate 18 05/09/25 07:57 Blood Pressure 188/97 H 05/09/25 07:57 Pulse Oximetry (%) 98 05/09/25 07:57 Oxygen Delivery Method Room Air 05/09/25 07:57 98% Extremity Injury MDM Narrative MDM Narrative:: Patient had a fracture to the distal right wrist described as a 2 mm splinter fracture possibly off the navicular and this occurred in early March. Since that she has had a splint in place awaiting an orthopedic consult in June. Patient tells me she has been able to move her right upper extremity within the confines of her splint as normal. I took an x-ray of the right wrist and back reads it as negative for any acute processes that is no fracture. So she will go home without a splint to the right upper extremity and a splint in the form of a boxer's fracture will be applied to the left upper extremity at the hand. She is then to create a new appointment for follow-up to today's Patient data External records reviewed:: Other (specify) (NA) Clinical information provided by:: none (NA) Social determinants that could affect healthcare access:: none Patient has the following chronic illnesses:: NA How is presenting disease/condition affected by chronic disease/condition?: no chronic disease Evaluation data The following diagnostics were reviewed and interpreted by me:: radiology exam(s) (There is no apparent fracture of the right wrist and there is a fracture of the distal left fourth metacarpal.) Lab and/or radiology exams considered but not ordered:: NA Interpretation Summary: NA Medications / Prescriptions Medications or Prescriptions considered but not ordered:: NA Medication administrations:: NA Consultations Consultation(s) initiated? (list below): No Consultation #1 (Physician, Specialty, Details): NA Diagnosis Upper Extremity Injury Differential Diagnosis: sprain and strain of wrist, fracture of wrist, finger sprain, dislocation of finger and fracture of hand Most likely diagnosis given after review of the tests above:: NA Admission Indicated Admission indicated?: not indicated Admission Request Was there a request for admission?: No Admission Attestation Admission request attestation: NA Disposition Plan Disposition Plan: Discharge Discharge Attestation Discharge Attestation: The patient and all family members were given an opportunity to ask questions and understood the discharge instructions. Discharge instructions specifically effects, indications for sooner follow up or return to the emergency department, and the expected course of current diagnosis. Patient condition: Stable Discharge Plan Plan Patient Disposition: HOME (Self Care) Discharge Disposition comment: Discharge in no apparent distress Patient condition on transfer: Stable Prescriptions/Referrals Prescriptions/Med Rec: No Action azithromycin [Zithromax Z-Josue] 250 mg tablet See Rx Instructions .ROUTE .COMPLEX Qty: 6 0RF Rx Instructions: take 500 mg today (day 1), then 250 mg for 4 days (days 2-5) levothyroxine [Synthroid] 150 mcg Tablet 175 mcg PO QAM propranolol 20 mg Tablet 40 mg PO DAILY hydrocodone-acetaminophen [[place]] 5-325 mg tablet 1 tab PO Q8H MDD 6 PRN (Reason: pain) Qty: 30 0RF azithromycin [Zithromax Z-Josue] 250 mg tablet See Rx Instructions .ROUTE .COMPLEX Qty: 6 0RF Rx Instructions: take 500 mg today (day 1), then 250 mg for 4 days (days 2-5) fluconazole 150 mg tablet 150 mg PO Q3D Qty: 2 0RF Rx Instructions: may repeat second dose 72 hrs after first dose if symptoms persist Referrals: Og Garcias MD [Primary Care Provider] - In 1 week Problem List Clinical Impression: Fracture of hand Impression comment: Discharge no apparent distress Patient/Caregiver Discharge Instructions Discharge Activity: activity as tolerated Education Materials: ED Fracture, Upper Extremity Print Language: [place] Stand Alone Forms: Carmen Award Info., Patient Portal Info Letter PA/PEDIATRIC RADIOLOGIST Supervising Physician PA/PEDIATRIC RADIOLOGIST Supervising Physician: SANDRA
--- NOTE | 2025-05-09 08:16 | XR_ITS ---
Examination:: Left hand 2 views Technique one AP lateral left hand 2 views Date and time: May 09, 2025 0838 hours INDICATIONS: Injured the hand 2 days ago, hand pain FINDINGS: Acute fractures distal fourth metacarpal, minimal offset No foreign body No dislocation IMPRESSION: Acute fractures distal fourth metacarpal
--- NOTE | 2025-05-09 10:13 | XR_ITS ---
Examination: Right wrist 2 views Technique one AP lateral right wrist 2 views Date and time: May 09, 2025 1018 hours INDICATIONS: Right wrist pain today FINDINGS: Severe osteopenia Mild narrowing radiocarpal intercarpal and carpometacarpal joints No erosive arthritis IMPRESSION: Mild narrowing radiocarpal intercarpal and carpometacarpal joints No erosive arthritis No fractures
== END 2025-05-09 11:28 | disposition home or self-care (01) ==
PROVIDERS: Emergency Provider Physician Assistant; PCP Family Medicine
DX: S62.305A Unspecified fracture of fourth metacarpal bone, left hand, initial encounter for closed fracture (principal); M25.531 Pain in right wrist; W22.09XA Striking against other stationary object, initial encounter
CPT/HCPCS: 73100; 73120; 99283

== ENCOUNTER → 2025-06-08 | Outpatient (CLI) | payer MEDICAID, SELFPAY ==
--- NOTE | 2025-06-08 | XR_ITS ---
Examination: Fingers, left hand fourth digit 3 views Technique: AP, oblique, lateral views left hand fourth digit 3 views. Exam date and time: June 08, 2025 0748 hours INDICATIONS: Acute fracture fourth metacarpal May 09, 2025 FINDINGS: Partial healing fracture fourth metacarpal with stable and satisfactory alignment IMPRESSION: Partial healing fracture fourth metacarpal with stable and satisfactory alignment
== END | disposition home or self-care (01) ==
PROVIDERS: PCP Family Medicine; Referring Provider Specialist; Visit Provider Specialist
DX: S62.609A Fracture of unspecified phalanx of unspecified finger, initial encounter for closed fracture (principal); X58.XXXA Exposure to other specified factors, initial encounter
CPT/HCPCS: 73140

== ENCOUNTER 2025-07-27 12:15 | Day surgery (SDC) | payer MEDICAID, SELFPAY ==
[2025-07-26 10:41] LABS: HCG Qualitative,Urine Negative
[2025-07-26 14:13] VITALS: BMI 47.5
[2025-07-27] VITALS (10 sets, daily range): BP systolic 113–154; BP diastolic 59–94; PULSE 64–96; RESP 19–25; TEMP 36.6–37.2; O2SAT 93–98; BMI 46.6
[2025-07-27] MEDS: RINGERS LACTATED 1000 ML 1,000 ML 100 ML IV (13:44)
[2025-07-27] MEDS: MIDAZOLAM INJ 1 MG/ML VIAL 2 ML (ASD USE ONLY) 2 MG IVP (13:46)
[2025-07-27] MEDS: fentaNYL CIT INJ 50 mCg/ML AMP 2ML (ASD USE ONLY) IVP (13:52)
== END 2025-07-27 14:35 | disposition home or self-care (01) ==
PROVIDERS: PCP Family Medicine; Referring Provider Surgery; Visit Provider Surgery
PROC: 0DBE8ZX Excision of Large Intestine, Via Natural or Artificial Opening Endoscopic, Diagnostic (ICD-10-PCS; CPT 45380; principal; 2025-07-27 13:45)
DX: Z12.11 Encounter for screening for malignant neoplasm of colon (principal); K57.30 Diverticulosis of large intestine without perforation or abscess without bleeding; K64.4 Residual hemorrhoidal skin tags; E03.9 Hypothyroidism, unspecified; E66.01 Morbid (severe) obesity due to excess calories; I10 Essential (primary) hypertension; Z68.42 Body mass index [BMI] 45.0-49.9, adult
CPT/HCPCS: 45378; 81025; A4217; A4649; J2250; J3010; J7120

== ENCOUNTER 2025-08-05 09:21 | Emergency (ER) | payer MEDICAID, SELFPAY ==
[2025-08-05 09:22] VITALS: BMI 44.9
[2025-08-05 09:45] VITALS: BP 159/94; PULSE 83; RESP 17; TEMP 36.3; O2SAT 97
--- NOTE | 2025-08-05 09:57 | XR_ITS ---
Examination: Pelvic ultrasound, transabdominal, complete Technique: Transabdominal ultrasound of the pelvis performed using grayscale imaging Date and time of exam: August 05, 2025, 1222 hours INDICATIONS: Vaginal bleeding beginning 1 month ago, history endometriosis FINDINGS: Uterus 17.4 cm endometrium thickened at 4.5 cm with vascularity Right ovary 4.6 cm arterial flow solid mass 3.2 x 3.0 cm Left ovary 2.4 cm arterial flow IMPRESSION: Markedly thickened heterogeneous vascular endometrium Solid right ovarian mass 3.2 x 2.6 x 3.0 cm Recommend MRI pelvis followed by pre and postcontrast to exclude malignant neoplasm of the endometrium and to assess the right ovarian mass
--- NOTE | 2025-08-05 09:58 | PD.EDRME ---
Rapid Medical Screening Exam E Arrival date/time: 08/05/25 09:21 This is a 54-year-old female that comes into the emergency room with complaints of vaginal bleeding for approximately 1 month. Patient states she has been passing clots. Patient reports that she has been diagnosed with endometriosiS. Patient states she recently saw her primary provider and was put on Provera for 10 days. Patient states it did not help her bleeding. Patient states that she is having a lot of cramping and she is scared because she is passing a lot of clots. I have greeted and performed a focused initial assessment of this patient. Initial appropriate labs ordered at this time. A comprehensive ED assessment and evaluation of the patient and analysis of all test and completion of medical decision making process will be conducted by additional ED provider. Chief Complaint: Vaginal Bleeding Time Seen by Provider: 08/05/25 09:44 Vital signs: Vital Signs Temperature 97.4 F 08/05/25 09:45 Pulse Rate 83 08/05/25 09:45 Respiratory Rate 17 08/05/25 09:45 Blood Pressure 159/94 H 08/05/25 09:45 Pulse Oximetry (%) 97 08/05/25 09:45 Oxygen Delivery Method Room Air 08/05/25 09:45 Exam: Alert and oriented, breathing even and unlabored. Clinical Impression: Vaginal bleeding
[2025-08-05 10:14] LABS: Collection Type, Urine Voided; Squamous Epithelial Cell,Urine 0 /hpf (0-5)
[2025-08-05 10:46] LABS: Basophils # (Auto) 0.1 Thou/mm3 (0.0-0.2); Basophils % (Auto) 1 % (0-2.5); Eosinophils # (Auto) 0.1 Thou/mm3 (0.0-0.5); Eosinophils % (Auto) 1 % (0-10); Hematocrit 37.2 % (36.0-46.0); Hemoglobin 12.6 g/dL (12.0-16.0); Immature Granulocytes Auto 0.02 Thou/mm3 (0.00-0.00); Lymphocytes # (Auto) 1.4 Thou/mm3 (1.0-4.8); Lymphocytes % (Auto) 22 % (10-50); Mean Corpuscular HGB Conc 33.9 g/dl (31.0-37.0); Mean Corpuscular Hemoglobin 31.1 pg (25.0-35.0); Mean Corpuscular Volume 92 fL (80-100); Monocytes # (Auto) 0.3 Thou/mm3 (0.0-0.8); Monocytes % (Auto) 5 % (0-12); Neutrophils # (Auto) 4.4 Thou/mm3 (1.8-7.7); Neutrophils % (Auto) 70 % (37-80); Nucleated Red Blood Cell # 0.00 Thou/mm3 (0.00-0.00); Nucleated Red Blood Cell % 0 /100 WBC (0); Platelet Count 234 Thou/mm3 (140-440); RDW Standard Deviation 41.1 fL (36.4-46.3); Red Blood Count 4.05 Miln/mm3 (4.00-5.20); White Blood Count 6.3 Thou/mm3 (3.6-11.0)
[2025-08-05 11:13] LABS: Alanine Aminotransferase 31 U/L (10-49); Albumin, Serum 4.7 gm/dL (3.5-5.0); Albumin/Globulin Ratio 2.0 (1.2-2.2); Alkaline Phosphatase 91 U/L (46-116); Anion Gap 11 (7-16); Aspartate Amino Transferase 28 U/L (0-34); BUN/Creatinine Ratio 17 Ratio (12-20); Bilirubin,Total 0.5 mg/dL (0.3-1.2); Blood Urea Nitrogen 10 mg/dL (9-23); Calcium 9.4 mg/dL (8.3-10.6); Calcium (Corrected) 9.4 mg/dL (8.5-10.1); Carbon Dioxide 22.6 mMol/L (20.0-31.0); Chloride 107 mMol/L (98-107); Creatinine (Component) 0.6 mg/dL (0.6-1.3); Estimated Creatinine Clearance 115.5 mL/min (>60); Globulin 2.4 gm/dL (2.3-3.5); Glucose 107 mg/dL (74-106); Osmolality,Calculated 280 (275-295); Potassium 4.0 mMol/L (3.4-5.1); Sodium 141 mMol/L (136-145); Total Protein 7.1 gm/dL (5.7-8.2); eGFR > 60 See Note
[2025-08-05 11:30] LABS: Bilirubin,Urine Negative (Negative); Blood,Urine 3+ (Negative); Calcium Oxalate Crystals,Urine 3+; Glucose, Urine Negative (Negative); Ketones,Urine 1+ (Negative); Leukocyte Esterase,Urine Positive (Negative); Nitrite,Urine Negative (Negative); PH,Urine 5.5 (5.0-7.0); Protein,Urine 1+ (Neg - Trace); RBC,Urine 8493 /hpf (0-3); Specific Gravity,Urine 1.028 (1.001-1.035); Urobilinogen,Urine Negative mg/dL (0.0-1.0); WBC,Urine 15 /hpf (0-5)
[2025-08-05 11:31] LABS: Clarity,Urine Turbid (Clear/Hazy); Color,Urine Brown (Lt Yel-Yel); Culture Indicated,Urine Yes
--- NOTE | 2025-08-05 14:39 | EDNOTE_ITS ---
<Statement entered by Rosita Cochran MD - 08/05/25 14:45> As co-signing physician, I was present and available for consult prn. I concur with the plan and care as documented by the midlevel provider. ED OB Contraction Preg RMI/HPI General Chief complaint: Vaginal Bleeding Stated complaint: VAG. BLEEDING X1 MONTH; HX ENDOMETRIOSIS Time Seen by Provider: 08/05/25 09:44 Arrival date/time: 08/05/25 09:21 54-year-old female patient came in for evaluation regarding vaginal bleeding. Patient's been having vaginal bleeding for the last 1 month severity moderate. Patient was seen by OUTSIDE PRODUCTION INSPECTOR and was started on Provera 5 mg daily with no relief. Patient also complained of pelvic discomfort this denies any dizziness. Denies any dysuria denies any other complaints no medication was taken prior to ER visit. RME / HPI RME / HPI Narrative: 08/05/25 09:21 This is a 54-year-old female that comes into the emergency room with complaints of vaginal bleeding for approximately 1 month. Patient states she has been passing clots. Patient reports that she has been diagnosed with endometriosiS. Patient states she recently saw her primary provider and was put on Provera for 10 days. Patient states it did not help her bleeding. Patient states that she is having a lot of cramping and she is scared because she is passing a lot of clots. I have greeted and performed a focused initial assessment of this patient. Initial appropriate labs ordered at this time. A comprehensive ED assessment and evaluation of the patient and analysis of all test and completion of medical decision making process will be conducted by additional ED provider. Exam: Alert and oriented, breathing even and unlabored. Impression: Vaginal bleeding Related Data Home Medications ?Medication ?Instructions ?Recorded ?Confirmed amlodipine 5 mg tablet 5 mg PO QDAY 07/26/25 levothyroxine 200 mcg tablet 200 mcg PO QDAY 07/26/25 07/26/25 medroxyprogesterone 10 mg tablet 10 mg PO QDAY 5 07/26/25 (Provera) propranolol 40 mg tablet 40 mg PO QDAY 07/26/2507/26 Previous Rx's ?Medication ?Instructions ?Recorded cephalexin 500 mg capsule 500 mg PO TID 7 days #21 cap s 08/05/25 medroxyprogesterone 10 mg tablet 10 mg PO QDAY #10 tab s 08/05/25 (Provera) Allergies Allergy/AdvReac Type Severity Reaction Status Date / Time sulfamethoxazole Allergy Severe SOB, Verified 08/05/25 09:25 GINA SKIN trimethoprim Allergy Severe SOB, Verified 08/05/25 09:25 GINA SKIN Review of Systems Review of Systems Narrative Review of Systems: Review of system reviewed and within normal limits except mentioned in HPI ED Exam Narrative Physical exam: VITAL SIGNS: Reviewed. GENERAL APPEARANCE: Alert and interactive, follows commands, no acute distress, HEAD AND FACE: Non-traumatic. ENT: PERRL, pink conjunctivitis, eyelid no trauma, Mucous membrane moist. NECK: Supple, nontender, no nuchal rigidity. CHEST: No tenderness, no crepitus, no paradoxical movement, no retractions. LUNGS: Clear, well ventilated, symmetric, no rales, no wheezing, no ronchi, no stridor, good breath sounds bilaterally. HEART: Regular rate, regular rhythm, no murmur, no gallops. ABDOMEN: Soft, positive bowel sounds, nondistended, no guarding, nontender, no rebound, no masses, RECTAL: Deferred. GENITAL: Deferred. NEUROLOGICAL: Gross motor function intact sensory function intact, Appropriate for age. MUSCULOSKELETAL: low back nontender, full range of motion. EXTREMITIES: Nontender, full range of motion. SKIN: Color pink, dry, no rash, no lacerations, no abrasions, no contusions. LYMPHATICS: Deferred. Course Quality Measures none Orders Category Date Time Status US pelvic complete Stat Exams 08/05/25 09:57 Completed CBC Stat Lab 08/05/25 10:20 Completed Comprehensive Metabolic Panel Stat Lab 08/05/25 10:20 Completed Urinalysis, C/S if Indicated Stat Lab 08/05/25 10:02 Completed Urine Culture Stat Lab 08/05/25 10:02 Received Vital Signs Vital signs: Vital Signs Temperature 97.4 F 08/05/25 09:45 Pulse Rate 83 08/05/25 09:45 Respiratory Rate 17 08/05/25 09:45 Blood Pressure 159/94 H 08/05/25 09:45 Pulse Oximetry (%) 97 08/05/25 09:45 Oxygen Delivery Method Room Air 08/05/25 09:45 Vaginal Bleeding MDM Narrative MDM Narrative: 08/05/25 09:21 54-year-old female patient came in for evaluation regarding vaginal bleeding. Patient's been having vaginal bleeding for the last 1 month severity moderate. Patient was seen by OUTSIDE PRODUCTION INSPECTOR and was started on Provera 5 mg daily with no relief. Patient also complained of pelvic discomfort this denies any dizziness. Denies any dysuria denies any other complaints no medication was taken prior to ER visit. Patient's workup today all came back positive for UTI there is no sign of anemia. Ultrasound of the pelvis showed Markedly thickened heterogeneous vascular endometrium Solid right ovarian mass 3.2 x 2.6 x 3.0 cm Recommend MRI pelvis followed by pre and postcontrast to exclude malignant neoplasm of the endometrium and to assess the right ovarian mass results discussed with the patient. Patient was advised to see OUTSIDE PRODUCTION INSPECTOR For further evaluation. Patient told me that he is going to see his OUTSIDE PRODUCTION INSPECTOR this coming Thursday. Patient data External records reviewed:: None Clinical information provided by:: patient Social determinants that could affect healthcare access:: none Patient has the following chronic illnesses:: None How is presenting disease/condition affected by chronic disease/condition?: no chronic disease Evaluation data The following diagnostics were reviewed and interpreted by me:: lab results and radiology exam(s) Lab and/or radiology exams considered but not ordered:: None Interpretation Summary: See results [facility] Medications / Prescriptions Medications or Prescriptions considered but not ordered:: none Medication administrations:: none Consultations Consultation(s) initiated? (list below): No Diagnosis Vaginal Bleeding Differential Diagnosis: dysfunctional uterine bleeding and menometrorrhagia Most likely diagnosis given after review of the tests above:: UTI, menometrorrhagia, ovarian mass Admission Indicated Admission indicated?: not indicated Admission Request Was there a request for admission?: No Disposition Plan Disposition Plan: Discharge Discharge Attestation Discharge Attestation: The patient was given an opportunity to ask questions and understood the discharge instructions. Discharge instructions specifically effects, indications for sooner follow up or return to the emergency department, and the expected course of current diagnosis. Patient condition: Stable Discharge Plan Plan Patient Disposition: HOME (Self Care) Discharge Disposition comment: Stable Prescriptions/Referrals Prescriptions/Med Rec: New cephalexin 500 mg capsule 500 mg PO TID 7 Days Qty: 21 0RF medroxyprogesterone [Provera] 10 mg tablet 10 mg PO QDAY Qty: 10 0RF No Action amlodipine 5 mg tablet 5 mg PO QDAY Patient Comments: TAKE 1 TABLET BY MOUTH TWICE A DAY propranolol 40 mg tablet 40 mg PO QDAY Patient Comments: TAKE 1 TABLET BY MOUTH TWICE A DAY ORALLY TWICE A DAY levothyroxine 200 mcg tablet 200 mcg PO QDAY Patient Comments: TAKE 1 TABLET BY MOUTH EVERY DAY IN THE MORNING ON EMPTY STOMACH FOR 90 DAYS medroxyprogesterone [Provera] 10 mg tablet 10 mg PO QDAY Referrals: Epi Hernandez MD [Primary Care Provider] - In 1 week Problem List Clinical Impression: Menometrorrhagia, UTI (urinary tract infection), Mass of ovary Patient/Caregiver Discharge Instructions Discharge Activity: activity as tolerated Education Materials: Understanding Urinary Tract ... Additional Instructions: Thank you for the opportunity for serving you today. You are stable for discharged . You are advised to: Follow-up with your OUTSIDE PRODUCTION INSPECTOR in 1 to 2 days Return to ED for worsening of symptoms Increase oral fluids Take medication as prescribed Print Language: Scottish Stand Alone Forms: [employer] Award Info., Patient Portal Info Letter
== END 2025-08-05 14:51 | disposition home or self-care (01) ==
PROVIDERS: Nurse Practitioner Family; Emergency Provider Emergency Medicine; PCP Family Medicine
DX: N83.9 Noninflammatory disorder of ovary, fallopian tube and broad ligament, unspecified (principal); N39.0 Urinary tract infection, site not specified; N92.1 Excessive and frequent menstruation with irregular cycle; Z79.3 Long term (current) use of hormonal contraceptives; N80.9 Endometriosis, unspecified
CPT/HCPCS: 36415; 76856; 80053; 81001; 85025; 87086; 99283

== ENCOUNTER 2025-08-13 10:43 | Emergency (ER) | payer MEDICAID, SELFPAY ==
[2025-08-13 11:20] VITALS: BP 150/82; PULSE 93; RESP 16; TEMP 37.1; O2SAT 99; BMI 47.5
--- NOTE | 2025-08-13 11:50 | EDNOTE_ITS ---
<Statement entered by Rosita Cochran MD - 08/13/25 16:31> As co-signing physician, I was present and available for consult prn. I concur with the plan and care as documented by the midlevel provider. ED General RME/HPI General Chief complaint: Vaginal Bleeding Stated complaint: VAG BLEEDING, WEAKNESS, FATIGUE Time Seen by Provider: 08/13/25 11:44 Arrival date/time: 08/13/25 10:43 CC: Weakness lightheadedness mild dizziness, vaginal bleeding HPI x 1 month. Denies nausea vomiting painful urination or bloody urination. Has a history of endometriosis is being worked up outpatient for hysterectomy but not for another 3 months. Has been on Premarin for at least 1 week without cessation of bleeding. Related Data Home Medications ?Medication ?Instructions ?Recorded ?Confirmed amlodipine 5 mg tablet 5 mg PO QDAY 07/26/25 levothyroxine 200 mcg tablet 200 mcg PO QDAY 07/26/25 07/26/25 medroxyprogesterone 10 mg tablet 10 mg PO QDAY 5 07/26/25 (Provera) propranolol 40 mg tablet 40 mg PO QDAY 07/26/2507/26 Previous Rx's ?Medication ?Instructions ?Recorded medroxyprogesterone 10 mg tablet 10 mg PO QDAY #10 tab s 08/05/25 (Provera) medroxyprogesterone 10 mg tablet 10 mg PO QDAY #10 tab s 08/13/25 (Provera) tranexamic acid 650 mg tablet 1,300 mg (2 x 650 mg) PO TID #30 08/13/25 tabs Allergies Allergy/AdvReac Type Severity Reaction Status Date / Time sulfamethoxazole Allergy Severe SOB, Verified 08/05/25 09: GINA SKIN trimethoprim Allergy Severe SOB, Verified 08/05/25 09: GINA SKIN Review of Systems Review of Systems Narrative Review of Systems: GEN: No fever, no chills, no weight loss EYES: No discharge, no visual changes, no pain HEENT: No ear pain, no congestion, no sore throat PULM: No shortness of breath, no cough, no congestion CV: No chest pain, no dyspnea on exertion, no palpitations GI: No nausea, no vomiting, no diarrhea, no pain, no constipation : No frequency, no urgency, no dysuria MUSC/SKEL: No joint pain, no back pain SKIN: No rash PSYCH: No hallucinations, no depression HEME/LYMPH: No easy bleeding or bruising tendencies NEURO: + weakness, no headache Past Medical History Past Medical History NEUROLOGIC: Negative Neurological Disorders or Seizures CARDIAC: Positive Edema and Hypertension; Negative Cardiac Disorders or Congestive Heart Failure RESPIRATORY: Negative Chronic Obstructive Pulmonary Disease (COPD), Asthma, Pneumonia or Sleep Apnea GASTROINTESTINAL: Positive Gastrointestinal Disorders and Gastroesophageal Reflux Disease GENITOURINARY: Negative Genitourinary Disorders or Renal Disease REPRODUCTIVE: Positive Previous Pregnancies MUSCULOSKELETAL: Positive Fractures (RIGHT WRIST FX); Negative Musculoskeletal Disorders ENDOCRINE: Positive Endocrine Disorders, Hypothyroidism and Thyroid Cancer; Negative Diabetes Mellitus Type 1 or Diabetes Mellitus Type 2 HEMATOLOGIC: Negative Blood Disorders, Anemia or Sickle Cell Disease PSYCHO/SOCIAL: Positive Anxiety OTHER HISTORY: Positive Chicken Pox and Cancer; Negative Hospitalization, Autoimmune Disease, Shingles, Falls, Blood Transfusions, Blood Transfusion Reaction, Anesthesia Reactions or Chemotherapy Family History FAMILY HISTORY: Negative Family Psychiatric Problems, Family Respiratory Disorders, Family Cardiac Disorders, Family Gastrointestinal Problems, Family Cancer, Family Surgery or Family Anesthesia Reaction Surgical History SURGICAL: Positive Endocrine Surgery, Thyroidectomy, Abdominal Surgery, Tubal Ligation and Section; Negative Cardiac Surgery or Joint Replacement Social History SMOKING STATUS: Never smoker SUBSTANCE USE: does not use ED Exam Narrative Physical exam: [General: Morbidly obese not in any acute distress Head normocephalic HEENT: Eyes pupils are PERRLA EOMs are intact mouth pink moist membranes all of the subsystems of HEENT are within acceptable limits Neck is supple nontender Chest equal chest rise nontender to palpation Respiratory: Clear to auscultation no wheezes crackles or rubs CV: Rate rhythm is regular no murmurs rubs or clicks Abdomen is grossly distended secondary to body habitus soft nontender no masses positive bowel sounds all 4 quadrants Back: No CVA tenderness no spinous process tenderness from cervical spine thoracic and lumbar spine Skin: No blanched conjunctiva, skin is intact no petechiae rash induration ulceration or crepitus Extremities: Moving all extremity against resistance cap refill less than 2 seconds neurosensory intact Neuro: Awake alert oriented x3 Glascow coma 15 no focal deficits] Course Course Course Narrative: Review of the laboratory results the patient is dropped 4 g in her last 8 days. Also note that there is slight abnormality in her TSH and free T4. Patient's case and clinical findings discussed with Dr. Garcia FLOOR TECHNICIAN who recommends patient continue on the Provera 10 mg in addition to TXA. Patient advised she has an appointment with her doctor tomorrow, patient advised to return in 3 to 4 days for recheck. If there is worsening of symptoms can return sooner for reevaluation. Quality Measures none Orders Category Date Time Status US transvaginal Stat Exams 08/13/25 12:55 Completed CBC Stat Lab 08/13/25 12:15 Completed CMP [Comprehensive Metabolic Panel] Stat Lab 08/13/25 12:15 Completed Free T4 (Free Thyroxine) Stat Lab 08/13/25 12:15 Completed TSH [Thyroid Stimulating Hormone] Stat Lab 08/13/25 12:15 Completed Type and Screen Stat Lab 08/13/25 12:15 Completed Urinalysis Stat Lab 08/13/25 13:06 Received Vital Signs Vital signs: Vital Signs Temperature 98.7 F 08/13/25 11:20 Pulse Rate 93 08/13/25 11:20 Respiratory Rate 16 08/13/25 11:20 Blood Pressure 150/82 H 08/13/25 11:20 Pulse Oximetry (%) 99 08/13/25 11:20 Oxygen Delivery Method Room Air 08/13/25 11:20 Discharge Plan Plan Patient Disposition: HOME (Self Care) Patient condition on transfer: Stable Prescriptions/Referrals Prescriptions/Med Rec: New tranexamic acid 650 mg tablet 1,300 mg PO TID Qty: 30 0RF medroxyprogesterone [Provera] 10 mg tablet 10 mg PO QDAY Qty: 10 0RF No Action medroxyprogesterone [Provera] 10 mg tablet 10 mg PO QDAY Qty: 10 0RF amlodipine 5 mg tablet 5 mg PO QDAY Patient Comments: TAKE 1 TABLET BY MOUTH TWICE A DAY propranolol 40 mg tablet 40 mg PO QDAY Patient Comments: TAKE 1 TABLET BY MOUTH TWICE A DAY ORALLY TWICE A DAY levothyroxine 200 mcg tablet 200 mcg PO QDAY Patient Comments: TAKE 1 TABLET BY MOUTH EVERY DAY IN THE MORNING ON EMPTY STOMACH FOR 90 DAYS medroxyprogesterone [Provera] 10 mg tablet 10 mg PO QDAY Referrals: Epi Hernandez MD [Primary Care Provider] - In 1 week Problem List Clinical Impression: Dysfunctional uterine bleeding, Anemia Patient/Caregiver Discharge Instructions Other Activity Instructions:: Today, August 13, 2025 your hemoglobin is 8.6 this is a 4 g drop from August 05, 2025. Your case was discussed with Dr. Manas RING on-call in the emergency room who suggested a continuance of the Provera 10 mg and to start TXA 1300 mg 3 times a day for 5 days. You are requested to return to the emergency room in 3 to 4 days for redraw. If there is any worsening of the bleeding lightheaded dizziness or syncope return to the emergency room for reevaluation. Education Materials: Anemia, ED Dysfunctional Uterine Bleeding Additional Instructions: Take the prescribed medications until completely gone. Follow-up with your PCP tomorrow. Print Language: Turkmen Stand Alone Forms: [employer] Award Info., Patient Portal Info Letter, Work/School Release GENE/DEE Supervising Physician GENE/DEE Supervising Physician: Obdulio Mcmillan ENP MDM Clinical Information Provided by: patient Medical Records reviewed [facility] Meds/Rx considered, not ordered None Labs/Rad/Tests considered, not ordered None Chronic Illness/Social Conditions Explain: Endometriosis morbid obesity hypothyroidism Labs Labs: interpreted by me Lab(s) Interpretation(s): CBC shows no leukocytosis hemoglobin of 8.6 and hematocrit of 26.0 note this is a 4 g drop in the last 8 days. Platelets are normal. CMP shows chloride of 110 glucose of 133 no other significant electrolyte imbalances renal impairment transaminitis or T. bili elevation The TSH of 0.19 free T4 of 1.78. Blood type a positive. Imaging Imaging interpretation: interpreted by [facility] Imaging Interpretation(s): Ultrasound is indeterminate of any acute finding secondary to bowel gas. Diagnosis Differential Diagnosis ED Complaint MDM: Hemorrhagic anemia dysphagia functional vaginal bleeding weakness
[2025-08-13 12:37] LABS: Basophils # (Auto) 0.1 Thou/mm3 (0.0-0.2); Basophils % (Auto) 1 % (0-2.5); Eosinophils # (Auto) 0.2 Thou/mm3 (0.0-0.5); Eosinophils % (Auto) 2 % (0-10); Hematocrit 26.0 % (36.0-46.0); Immature Granulocytes Auto 0.05 Thou/mm3 (0.00-0.00); Lymphocytes # (Auto) 1.6 Thou/mm3 (1.0-4.8); Lymphocytes % (Auto) 24 % (10-50); Mean Corpuscular HGB Conc 33.1 g/dl (31.0-37.0); Mean Corpuscular Hemoglobin 31.4 pg (25.0-35.0); Mean Corpuscular Volume 95 fL (80-100); Monocytes # (Auto) 0.3 Thou/mm3 (0.0-0.8); Monocytes % (Auto) 5 % (0-12); Neutrophils # (Auto) 4.4 Thou/mm3 (1.8-7.7); Neutrophils % (Auto) 67 % (37-80); Nucleated Red Blood Cell # 0.05 Thou/mm3 (0.00-0.00); Nucleated Red Blood Cell % 1 /100 WBC (0); Platelet Count 263 Thou/mm3 (140-440); RDW Standard Deviation 45.8 fL (36.4-46.3); Red Blood Count 2.74 Miln/mm3 (4.00-5.20); White Blood Count 6.5 Thou/mm3 (3.6-11.0)
[2025-08-13 12:39] LABS: Hemoglobin 8.6 g/dL (12.0-16.0)
[2025-08-13 12:45] LABS: Alanine Aminotransferase 26 U/L (10-49); Albumin, Serum 4.3 gm/dL (3.5-5.0); Albumin/Globulin Ratio 2.2 (1.2-2.2); Alkaline Phosphatase 84 U/L (46-116); Anion Gap 7 (7-16); Aspartate Amino Transferase 21 U/L (0-34); BUN/Creatinine Ratio 16 Ratio (12-20); Bilirubin,Total 0.3 mg/dL (0.3-1.2); Blood Urea Nitrogen 8 mg/dL (9-23); Calcium 8.8 mg/dL (8.3-10.6); Calcium (Corrected) 8.8 mg/dL (8.5-10.1); Carbon Dioxide 24.7 mMol/L (20.0-31.0); Chloride 110 mMol/L (98-107); Creatinine (Component) 0.5 mg/dL (0.6-1.3); Estimated Creatinine Clearance 137.6 mL/min (>60); Free T4 (Free Thyroxine) 1.78 ng/dL (0.89-1.76); Globulin 2.0 gm/dL (2.3-3.5); Glucose 133 mg/dL (74-106); Osmolality,Calculated 283 (275-295); Potassium 3.6 mMol/L (3.4-5.1); Sodium 142 mMol/L (136-145); Thyroid Stimulating Hormone 0.19 uIU/mL (0.55-4.78); Total Protein 6.3 gm/dL (5.7-8.2); eGFR > 60 See Note
--- NOTE | 2025-08-13 12:55 | XR_ITS ---
Examination: Transvaginal ultrasound of the pelvis, complete Technique: Transvaginal sonographic images pelvis performed using costello scale imaging Exam date and time: August 13, 2025, 12:44 p.m. INDICATIONS: Diagnosis endometriosis, vaginal bleeding beginning 1 month ago FINDINGS: Uterus 12.6 cm endometrial stripe 1.1 cm No uterine mass or intrauterine gestation Ovaries obscured by bowel gas IMPRESSION: Limited study Poor visualization uterus secondary to bowel gas No diagnostic visualization ovaries.
[2025-08-13 13:19] LABS: Collection Type, Urine Clean Catch; Squamous Epithelial Cell,Urine 0 /hpf (0-5)
[2025-08-13 13:51] LABS: Amorphous Crystals,Urine Present (Absent); Bilirubin,Urine Negative (Negative); Blood,Urine 3+ (Negative); Glucose, Urine Negative (Negative); Ketones,Urine Negative (Negative); Leukocyte Esterase,Urine Positive (Negative); Nitrite,Urine Negative (Negative); PH,Urine 7.5 (5.0-7.0); Protein,Urine 1+ (Neg - Trace); RBC,Urine 3662 /hpf (0-3); Specific Gravity,Urine 1.015 (1.001-1.035); Urobilinogen,Urine Negative mg/dL (0.0-1.0); WBC,Urine 6 /hpf (0-5)
[2025-08-13 13:56] LABS: Clarity,Urine Turbid (Clear/Hazy); Color,Urine Lt-Red (Lt Yel-Yel)
== END 2025-08-13 14:29 | disposition home or self-care (01) ==
PROVIDERS: Registered Nurse General Practice; Emergency Provider Emergency Medicine; PCP Family Medicine
DX: D64.9 Anemia, unspecified (principal); N93.8 Other specified abnormal uterine and vaginal bleeding; E03.9 Hypothyroidism, unspecified; E66.01 Morbid (severe) obesity due to excess calories; N80.9 Endometriosis, unspecified; Z79.3 Long term (current) use of hormonal contraceptives; Z90.710 Acquired absence of both cervix and uterus; Z96.60 Presence of unspecified orthopedic joint implant
CPT/HCPCS: 36415; 76830; 80053; 81001; 84439; 84443; 85025; 86850; 86900; 86901; 99283

== ENCOUNTER → 2025-10-03 | Outpatient (CLI) | payer MEDICAID, SELFPAY ==
--- NOTE | 2025-10-03 10:30 | XR_ITS ---
EXAMINATION: MRI pelvis with intravenous contrast TECHNIQUE: Axial sagittal coronal MRI images of the pelvis post intravenous administration 20 cc gadolinium INDICATIONS: Irregular heavy vaginal bleeding August 2025, diagnosis endometriosis 2020, history of cervical biopsy May 2025, solid right ovarian mass 3.2 x 2.6 x 3.0 cm on ultrasound August 05, 2025 FINDINGS: Uterus 14 x 6.3 x 6.0 cm Endometrium is poorly visualized but appears thickened up to 19 mm Fundus of the uterus diffusely enlarged Left ovary 2.2 x 2.8 cm Right ovarian solid mass with diffuse enhancement 3.5 x 3.4 cm No free fluid in the pelvis Intact osseous structures IMPRESSION: Recommend repeat transvaginal pelvic sonography to exclude abnormal thickening of the endometrium Right ovarian solid mass with diffuse enhancement 3.5 x 3.4 cm, highest on the differential list ovarian tumor
== END | disposition home or self-care (01) ==
PROVIDERS: PCP Family Medicine; Referring Provider Family Medicine; Visit Provider Family Medicine
DX: R93.89 Abnormal findings on diagnostic imaging of other specified body structures (principal); R19.00 Intra-abdominal and pelvic swelling, mass and lump, unspecified site
CPT/HCPCS: 72196; A9577